=== PATIENT | male | born 1990 | race African-American/Black ===

== ENCOUNTER 2020-05-27 21:00 | Emergency (ER) | payer SELFPAY ==
[~2020-05-27] VITALS: Ht 180.3 cm; Wt 118.0 kg
[2020-05-27] MEDS ORDERED: TRAMADOL 50MG TABLET PO ONE (23:00)
[2020-05-28 00:05] VITALS: BP 131/80
== END 2020-05-28 00:14 | disposition home or self-care (01) ==
LOC: ER 21:34
DX: G44.309 Post-traumatic headache, unspecified, not intractable (principal); V49.49XA Driver injured in collision with other motor vehicles in traffic accident, initial encounter; Y93.89 Activity, other specified; Y92.89 Other specified places as the place of occurrence of the external cause; Y99.8 Other external cause status
CPT/HCPCS: 99283